=== PATIENT | male | born 1985 | race Caucasian/White ===

== ENCOUNTER 2021-07-12 06:06 | Emergency (ER) | payer OTHER ==
[2021-07-12 06:33] VITALS: TEMP 98.1; BMI 24.6
[2021-07-12] MEDS ORDERED: CLINDAMYCIN 600MG PREMIX IVPB 600 MG/50 ML BAG IVPB ONE ×2 (07:50→07:59)
[2021-07-12] MEDS ORDERED: KETOROLAC TROMETHAMINE 15 MG/ML VIAL IVPUSH ONE (07:51)
[2021-07-12] MEDS ORDERED: KETOROLAC TROMETHAMINE 15 MG/ML VIAL ONE (07:59)
[2021-07-12 08:47] LABS: BASO % 0.3 % (0-2.0); EOS % 1.3 % (0-4.5); HEMATOCRIT 44.1 % (35.4-49); HEMOGLOBIN 14.7 GM/dL (11.7-16.9); LYMPH % 17.8 % (8-40); MCHC 33.3 g/dl (32.0-35.9); MEAN PLT VOLUME 7.6 fl (7.5-11.1); MONO % 8.4 % (3.8-10.2); NEUT % 72.2 % (42.8-82.8); PLATELET COUNT 300 10^3/uL (134-434); RBC 5.07 M/mm3 (4.00-5.60); RDW 13.9 % (11.9-15.9); WHITE BLOOD COUNT 9.7 K/mm3 (4.0-10.0)
[2021-07-12 09:16] LABS: CALCIUM 9.2 mg/dL (8.5-10.1)
[2021-07-12 09:17] LABS: ALBUMIN 3.6 g/dl (3.4-5.0)
[2021-07-12 09:20] LABS: CREATININE 0.8 mg/dL (0.55-1.3)
[2021-07-12 09:21] LABS: BILIRUBIN,TOTAL 0.3 mg/dL (0.2-1); TOT PROT 7.3 g/dl (6.4-8.2)
[2021-07-12 10:29] VITALS: BP 124/88; PULSE 82
== END 2021-07-12 09:46 | disposition home or self-care (01) ==
LOC: JER 06:06
PROC: 3E03329 Introduction of Other Anti-infective into Peripheral Vein, Percutaneous Approach (ICD-10-PCS; principal; 2021-07-12)
PROC: 3E0333Z Introduction of Anti-inflammatory into Peripheral Vein, Percutaneous Approach (ICD-10-PCS; 2021-07-12)
DX: K04.7 Periapical abscess without sinus (principal); R22.0 Localized swelling, mass and lump, head
CPT/HCPCS: 36415; 80053; 85025; 93005; 93010; 99285-25

== ENCOUNTER 2021-08-06 21:56 | Emergency (ER) | payer OTHER ==
[2021-08-06 22:15] VITALS: BP 133/91; PULSE 96; TEMP 98.6; BMI 22.8
[2021-08-06] MEDS ORDERED: DALBAVANCIN HCL 1,500 MG in DEXTROSE 5%-WATER - 500 ML IVPB ONE (23:14)
[2021-08-06 23:24] LABS: BASO % 0.8 % (0-2.0); EOS % 2.8 % (0-4.5); HEMATOCRIT 38.6 % (35.4-49); HEMOGLOBIN 13.2 GM/dL (11.7-16.9); LYMPH % 36.3 % (8-40); MCH 29.4 pg (25.7-33.7); MCHC 34.2 g/dl (32.0-35.9); MEAN CELL VOLUME 85.9 fl (80-96); MEAN PLT VOLUME 7.2 fl (7.5-11.1); MONO % 8.7 % (3.8-10.2); NEUT % 51.4 % (42.8-82.8); PLATELET COUNT 343 10^3/uL (134-434); RBC 4.49 M/mm3 (4.00-5.60); RDW 13.5 % (11.9-15.9); WHITE BLOOD COUNT 7.4 K/mm3 (4.0-10.0)
[2021-08-06] MEDS ORDERED: DALBAVANCIN HCL 500 MG VIAL (RESTRICTED TO ID ONLY) IVPB ONE (23:32)
[2021-08-06 23:44] LABS: CALCIUM 8.4 mg/dL (8.5-10.1)
[2021-08-06 23:45] LABS: ALBUMIN 2.9 g/dl (3.4-5.0); BLOOD UREA NITROGEN 14.3 mg/dL (7-18)
[2021-08-06 23:50] LABS: BILIRUBIN,TOTAL 0.2 mg/dL (0.2-1); TOT PROT 6.5 g/dl (6.4-8.2)
== END 2021-08-07 01:44 | disposition home or self-care (01) ==
LOC: JER 21:56
DX: L03.113 Cellulitis of right upper limb (principal)
CPT/HCPCS: 36415; 71045-TC-FY; 80053; 85025; 87040; 93005; 93010; 99285-25; J0875